=== PATIENT | male | born 1940 | race Caucasian/White ===

== ENCOUNTER 2016-08-15 10:50 | Inpatient (IN) | payer MEDICARE, OTHER ==
[2016-08-15] MEDS ORDERED: TYLENOL 325 MG PO PRN (11:14)
[2016-08-15] MEDS ORDERED: solu-MEDROL 125 MG IV ONE (11:30)
[2016-08-15] MEDS: PROVENTIL 2.5 MG/3 ML NEB IH SCH ×2 (11:39→14:36)
[2016-08-15] MEDS: Levofloxacin 500MG/100ML D5W 100 ML IV SCH (11:43)
[2016-08-15] MEDS: Dextrose 5% -0.45 NaCl 1000 ML 1,000 ML IV SCH (11:43)
[2016-08-15 11:45] LABS: BASOPHIL % 0.2 % (0.0-0.4); Eosinophil % 2.5 % (0.00-5.0); Granulocytes % 59.3 % (36.0-66.0); Lymphocytes % 27.7 % (24.0-44.0); Mean Cell Volume 88.6 fl (78-100); Mean Corpuscular Hemoglobin 28.3 pg (26-32); Mean Platelet Volume 10.5 fl (6-9.5); Monocytes % 10.3 % (0.0-12.0); Platelet Count 288 K/mm3 (150-450); Red Blood Count 4.92 M/mm3 (4.1-5.6); Red Cell Distribution Width 14.4 % (11.5-14.0); White Blood Count 8.1 K/mm3 (4.0-10.5)
[2016-08-15 12:12] LABS: ALBUMIN 2.9 g/dL (3.4-5.0); ALKALINE PHOSPHATASE 72 U/L (46-116); ANION GAP 13.9 MEQ/L (5-15); BILIRUBIN,TOTAL 0.3 mg/dL (0.2-1.0); BLOOD UREA NITROGEN 14 mg/dL (9-20); CHLORIDE 108 mEq/L (98-107); Carbon Dioxide 26.2 mEq/L (21-32); Glucose 105 MG/DL (70-110); SGOT/AST 18 U/L (15-37); SGPT/ALT 15 U/L (12-78); SODIUM 144 mEq/L (136-145); Total Protein 7.2 gm/dL (6.4-8.2)
--- NOTE | 2016-08-15 12:48 | XRAY ---
Indication: Pneumonia. Comparison: August 11, 2016 PA/lateral chest unchanged again hyperinflated with right lung infiltrates greatest in the right upper lobe with small effusion. No new cardiopulmonary abnormalities.
[2016-08-15] MEDS ORDERED: BENADRYL 25 MG CAPSULE PO PRN (13:58)
[2016-08-15] MEDS ORDERED: TYLENOL EXTRA STRENGTH 500 MG PO PRN (13:58)
[2016-08-15] MEDS: solu-MEDROL 125 MG IV SCH ×2 (17:06→23:10)
[2016-08-15] MEDS ORDERED: Xopenex 1.25 MG/0.5 ML UD NEBULE IH ONE (18:52)
[2016-08-15] MEDS ORDERED: Sodium Chloride 3 ML UD NEBULES IH ONE (18:52)
[2016-08-15] MEDS: Sodium Chloride 3 ML UD NEBULES IH SCH ×2 (18:58→23:04)
[2016-08-15] MEDS: Xopenex 1.25 MG/0.5 ML UD NEBULE IH SCH ×2 (18:58→23:04)
[2016-08-15] MEDS: PATIENT OWN MEDICATION IH SCH (18:58)
[2016-08-15] MEDS ORDERED: Cozaar 50 MG ONE (19:49)
[2016-08-15] MEDS ORDERED: NORVASC 5 MG ONE (19:52)
[2016-08-15] MEDS ORDERED: Lopressor 50 MG ONE (19:52)
[2016-08-15] MEDS ORDERED: Flomax 0.4 MG ONE (20:01)
[2016-08-15] MEDS: Lopressor 50 MG PO SCH (20:09)
[2016-08-15] MEDS: Flomax 0.4 MG PO SCH (20:09)
[2016-08-15] MEDS: Cozaar 50 MG PO SCH (20:09)
[2016-08-15] MEDS: NORVASC 5 MG PO SCH (20:09)
[2016-08-15] MEDS ORDERED: METOPROLOL TARTRATE 100 MG PO SCH (22:00)
[2016-08-15] MEDS ORDERED: DIPHENHYDRAMINE PO SCH (22:00)
[2016-08-15] MEDS ORDERED: NON-FORMULARY ITEM (Amlodipine Besylate 10 Mg [Norvasc 10 Mg] 10 MG) PO SCH (22:00)
[2016-08-15] MEDS ORDERED: ACETAMINOPHEN PO SCH (22:00)
[2016-08-15] MEDS ORDERED: [UNRECOGNIZED DRUG - OTHER] PO SCH (22:00)
[2016-08-15 23:30] LABS: A-aADO2 41; ARTERIAL BLOOD GAS BASE EXCESS -1.3 (-2.0-2.0); ARTERIAL BLOOD GAS FIO2 21 %; ARTERIAL BLOOD GAS PO2 65 mmHg (75-100); ARTERIAL BLOOD GAS pH 7.42 (7.35-7.45)
[2016-08-16] MEDS: Dextrose 5% -0.45 NaCl 1000 ML 1,000 ML IV SCH ×2 (01:03→14:29)
[2016-08-16] MEDS: Sodium Chloride 3 ML UD NEBULES IH SCH ×5 (03:07→22:45)
[2016-08-16] MEDS: Xopenex 1.25 MG/0.5 ML UD NEBULE IH SCH ×6 (03:08→22:45)
[2016-08-16] MEDS: solu-MEDROL 125 MG IV SCH ×4 (05:48→23:15)
[2016-08-16] MEDS ORDERED: BABY ASPIRIN 81 MG CHEW PO SCH (10:00)
[2016-08-16] MEDS ORDERED: METOPROLOL TARTRATE 50 MG PO SCH (10:00)
[2016-08-16] MEDS ORDERED: NON-FORMULARY ITEM (Omeprazole 20 Mg [Prilosec 20 Mg] 20 MG) PO SCH (10:00)
[2016-08-16] MEDS ORDERED: RED YEAST RICE 600 MG PO SCH (10:00)
[2016-08-16] MEDS ORDERED: NON-FORMULARY ITEM (Losartan Potassium [Losartan Potassium] 100 MG) PO SCH (10:00)
[2016-08-16] MEDS: Zetia 10 MG PO SCH (10:54)
[2016-08-16] MEDS: ECOTRIN 81 MG PO SCH (10:55)
[2016-08-16] MEDS: Protonix 40MG Tablet PO SCH (10:55)
[2016-08-16] MEDS: Vitamin C 500 MG PO SCH (10:56)
[2016-08-16] MEDS: Lopressor 50 MG PO SCH ×2 (10:56→21:09)
[2016-08-16] MEDS: Vitamin E 400 UNIT SOFTGEL PO SCH (10:57)
[2016-08-16] MEDS: MEDICATION INTERVENTION MC SCH (10:57)
[2016-08-16] MEDS: Levofloxacin 500MG/100ML D5W 100 ML IV SCH (10:59)
--- NOTE | 2016-08-16 12:49 | PCM.NOTE ---
Date and Time: 08/16/16 1244 Subjective Assessment: Pt is feeling better than at admission. His cough has increased. He is on O2 per [place] (does not wear O2 at home). He is concerned that he not miss his urology consult in [place] on Thursday afternoon. Objective Exam General Appearance: no apparent distress Neurologic Exam: alert, oriented x 3, cooperative Skin Exam: normal color, warm, dry Respiratory Exam: diminished breath sounds (in BEA), other (good air exchange), No crackles/rales, No rhonchi, No wheezing Cardiovascular Exam: regular rate/rhythm, normal heart sounds Gastrointestinal/Abdomen Exam: soft, No tenderness Extremity Exam: other (KAELYN hose in place), No pedal edema, No swelling OBJECTIVE DATA Vital Signs: Vital Signs - 24 hr Temp Pulse Resp BP Pulse Ox 08/16/16 11:54 98.4 F 88 18 148/76 95 08/16/16 11:44 18 95 08/16/16 08:00 18 91 L 08/16/16 07:36 83 18 96 08/16/16 07:23 98.7 F 88 19 124/58 91 L 08/16/16 04:00 98.1 F 88 20 161/76 94 L 08/16/16 03:07 88 20 94 L 08/16/16 00:00 98.7 F 95 H 19 160/76 88 L 08/15/16 23:04 95 H 19 88 L 08/15/16 20:00 98.5 F 88 17 169/78 92 L 08/15/16 18:58 105 H 20 92 L 08/15/16 16:00 98.6 F 79 18 141/66 92 L 08/15/16 14:38 72 18 93 L Oxygen-Last 24 hours O2 Percentage 2 Liters = 28% O2 Percentage 2 Liters = 28% O2 Percentage 2 Liters = 28% Pain Assessment - Last Documented Pain Scale Used 0-10 Pain Scale Intake and Output: Intake & Output 08/14/16 08/15/16 08/16/16 08/17/16 11:59 11:59 11:59 11:59 Intake Total 2185 Output Total 1325 Balance 860 Weight 86.636 kg Lab Results: Lab Results-Last 24 Hours 08/15/16 Range/Units 23:23 Puncture Site RIGHT BRACHIAL pCO2 35 (35-45) mmHg pO2 65 L (75-100) mmHg Base Excess -1.3 (-2.0-2.0) O2 Saturation 93.1 L (94-100) g/dF ABG pH 7.42 (7.35-7.45) ABG HCO3 22.7 (22-28) ABG O2 Sat (Measured) 96.0 (95-100) % Alex Test NOT APPLICABLE A-a Gradient 41 a/A Ratio 0.61 Hemoglobin 13.7 Carboxyhemoglobin 2.1 (0.0-6.9) % THgb Methemoglobin 0.9 L (1.4-1.5) % Potassium 4.0 (3.5-5.1) Temperature 37.0 C POC O2 Flow Rate 21 % Radiology Exams: Radiology Procedures Category Date Time Status CHEST 2 VIEWS (PA AND LAT) Routine Exams 08/15/16 12:00 Completed Assessment/Plan (1) Pneumonia Current Visit: Yes Status: Acute Qualifiers: Pneumonia type: due to unspecified organism Laterality: right Lung location: upper lobe of lung Qualified Code(s): J18.1 - Lobar pneumonia, unspecified organism Assessment & Plan: Pt is on levaquin, clinically improved. IV solumedrol. Nebs. Add mucinex. Code(s): J18.9 - PNEUMONIA, UNSPECIFIED ORGANISM (2) COPD (chronic obstructive pulmonary disease) Current Visit: Yes Status: Chronic (3) Bladder cancer Current Visit: Yes Status: Chronic Assessment & Plan: This is a new diagnosis and he is anxious to get to his appointment in [facility] on Thursday. I agree this is important; would hope he is improved enough to D/c on Thursday, but will be at the discretion of Dr. Gardner.
[2016-08-16] MEDS: Mucinex 600MG ER Tabs PO SCH ×2 (13:45→21:09)
[2016-08-16] MEDS: PATIENT OWN MEDICATION IH SCH (18:37)
[2016-08-16] MEDS: Flomax 0.4 MG PO SCH (21:09)
[2016-08-16] MEDS: Cozaar 50 MG PO SCH (21:09)
[2016-08-16] MEDS: NORVASC 5 MG PO SCH (21:09)
[2016-08-17] MEDS: Sodium Chloride 3 ML UD NEBULES IH SCH ×6 (02:43→22:38)
[2016-08-17] MEDS: Xopenex 1.25 MG/0.5 ML UD NEBULE IH SCH ×6 (02:43→22:38)
[2016-08-17] MEDS: Dextrose 5% -0.45 NaCl 1000 ML 1,000 ML IV SCH ×2 (03:07→17:49)
[2016-08-17] MEDS: solu-MEDROL 125 MG IV SCH ×4 (05:21→23:17)
[2016-08-17] MEDS: Zetia 10 MG PO SCH (09:06)
[2016-08-17] MEDS: ECOTRIN 81 MG PO SCH (09:06)
[2016-08-17] MEDS: Mucinex 600MG ER Tabs PO SCH ×2 (09:06→22:00)
[2016-08-17] MEDS: Protonix 40MG Tablet PO SCH (09:06)
[2016-08-17] MEDS: Levofloxacin 500MG/100ML D5W 100 ML IV SCH (09:07)
[2016-08-17] MEDS: Lopressor 50 MG PO SCH ×2 (09:07→22:00)
[2016-08-17] MEDS: MEDICATION INTERVENTION MC SCH (09:07)
[2016-08-17] MEDS: Vitamin C 500 MG PO SCH (09:08)
[2016-08-17] MEDS: Vitamin E 400 UNIT SOFTGEL PO SCH (09:08)
[2016-08-17] MEDS ORDERED: PREVNAR 13 SYRINGE IM ONE (15:00)
--- NOTE | 2016-08-17 15:30 | PCM.NOTE ---
Date and Time: 08/17/16 1525 Subjective Assessment: Pt is feeling much better. Still on O2 per [place]. - Review of Systems Constitutional: No Fever Respiratory: Cough Objective Exam General Appearance: no apparent distress Neurologic Exam: alert, oriented x 3, cooperative Skin Exam: normal color, warm, dry Respiratory Exam: diminished breath sounds, wheezing (light scattered) Cardiovascular Exam: regular rate/rhythm, normal heart sounds Extremity Exam: No pedal edema, No swelling OBJECTIVE DATA Vital Signs: Vital Signs - 24 hr Temp Pulse Resp BP Pulse Ox 08/17/16 14:35 78 18 93 L 08/17/16 12:00 18 92 L 08/17/16 11:44 98.4 F 69 18 133/65 90 L 08/17/16 11:10 92 L 08/17/16 10:29 72 18 94 L 08/17/16 08:00 19 95 08/17/16 07:32 98.0 F 74 19 160/74 95 08/17/16 07:05 77 18 93 L 08/17/16 04:00 97.8 F 84 20 133/61 93 L 08/17/16 02:43 84 20 93 L 08/17/16 00:00 98.4 F 82 21 136/61 92 L 08/16/16 22:45 82 21 92 L 08/16/16 20:00 98.2 F 87 2 L 134/77 91 L 08/16/16 18:34 83 21 92 L 08/16/16 16:00 98.9 F 85 19 136/66 92 L Oxygen-Last 24 hours O2 Percentage 1 Liter = 24% O2 Percentage 2 Liters = 28% O2 Percentage 2 Liters = 28% O2 Percentage 2 Liters = 28% O2 Percentage 2 Liters = 28% O2 Percentage 2 Liters = 28% Pain Assessment - Last Documented Pain Scale Used 0-10 Pain Scale Intake and Output: Intake & Output 08/15/16 08/16/16 08/17/16 08/18/16 11:59 11:59 11:59 11:59 Intake Total 2185 2665 Output Total 1325 Balance 860 2665 Weight 86.636 kg Assessment/Plan (1) Pneumonia Current Visit: Yes Status: Acute Qualifiers: Pneumonia type: due to unspecified organism Laterality: right Lung location: upper lobe of lung Qualified Code(s): J18.1 - Lobar pneumonia, unspecified organism Assessment & Plan: He has definitely made improvements with the levaquin. Ideally, he would be free to stay in the hospital for another day or two, but I understand the importance of his appointment in [place] tomorrow and agree that he should go to that. To this end, we will arrange for home O2 today and schedule his a.m. levaquin for 0700. I explained the Dr. Gardner will re-assess him in the morning. Code(s): J18.9 - PNEUMONIA, UNSPECIFIED ORGANISM (2) COPD (chronic obstructive pulmonary disease) Current Visit: Yes Status: Chronic (3) Bladder cancer Current Visit: Yes Status: Chronic Assessment & Plan: Following up with urology outpatient. I explained to the patient that the urologist will likely wait to proceed with surgery until his lung infection is cleared.
[2016-08-17] MEDS: PATIENT OWN MEDICATION IH SCH (19:00)
[2016-08-17] MEDS ORDERED: Pepcid 20 MG PO PRN (20:20)
[2016-08-17] MEDS: Cozaar 50 MG PO SCH (21:59)
[2016-08-17] MEDS: Flomax 0.4 MG PO SCH (21:59)
[2016-08-17] MEDS: NORVASC 5 MG PO SCH (22:00)
[2016-08-18] MEDS: Sodium Chloride 3 ML UD NEBULES IH SCH ×2 (02:37→06:42)
[2016-08-18] MEDS: Xopenex 1.25 MG/0.5 ML UD NEBULE IH SCH ×2 (02:37→06:42)
[2016-08-18] MEDS: solu-MEDROL 125 MG IV SCH (06:10)
[2016-08-18] MEDS ORDERED: Pepcid 20 MG PO PRN (06:37)
[2016-08-18] MEDS ORDERED: Levofloxacin 500MG/100ML D5W 100 ML IV SCH (07:00)
[2016-08-18 07:24] VITALS: BP 125/60; PULSE 73; O2SAT 91
--- NOTE | 2016-08-18 08:35 | PCM.DCORD ---
- Discharge Discharge Date: 08/18/16 Disposition: Home, Self-Care Condition: Fair Prescriptions: New Prednisone 20 mg [Deltasone 20 mg] 20 mg PO UD #10 tablet Guaifenesin [Guaifenesin ER] 600 mg PO BID PRN #20 tab.er.12h PRN Reason: Cough Levofloxacin 500 mg PO DAILY #3 tablet Continue Ezetimibe 10 mg [Zetia 10 MG] 10 mg PO DAILY Red Yeast Rice 600 mg PO DAILY Acetaminophen 500 mg [Tylenol Extra Strength 500 mg] 500 mg PO Q4- 6HPRN PRN PRN Reason: arthritis Amlodipine Besylate 10 mg [Norvasc 10 MG] 10 mg PO HS Tamsulosin HCl 0.4 mg [Flomax 0.4 MG] 0.4 mg PO QHS #7 cap Vitamin E 400 Units [Vitamin E 400 UNIT SOFTGEL] 400 unit PO DAILY Aspirin 81 gm Chew [Baby Aspirin 81 mg Chew] 81 mg PO DAILY Ascorbic Acid 500 mg [Vitamin C 500 MG] 500 mg PO DAILY Metoprolol Tartrate [Lopressor] 100 mg PO HS Losartan Potassium 100 mg PO DAILY Metoprolol Tartrate 50 mg PO DAILY Omeprazole 20 MG [Prilosec 20 mg] 20 mg PO DAILY Umeclidinium [place] [Incruse Ellipta] 1 puff IH DAILY Acetaminophen/Diphenhydramine [Tylenol Pm Ex-Strength Caplet] 1 each PO HS Additional Instructions: Oxygen by nasal cannula 2 L at all times. [facility] supply this. Follow up with: LAMIN SMITH [Primary Care Provider] - 1 Week Forms: Patient Portal Information
[2016-08-18] MEDS: ECOTRIN 81 MG PO SCH (08:47)
[2016-08-18] MEDS: Protonix 40MG Tablet PO SCH (08:47)
[2016-08-18] MEDS: Mucinex 600MG ER Tabs PO SCH (08:47)
[2016-08-18] MEDS: Zetia 10 MG PO SCH (08:47)
[2016-08-18] MEDS: Lopressor 50 MG PO SCH (08:47)
[2016-08-18] MEDS: MEDICATION INTERVENTION MC SCH (08:47)
[2016-08-18] MEDS: Vitamin E 400 UNIT SOFTGEL PO SCH (08:48)
[2016-08-18] MEDS: Vitamin C 500 MG PO SCH (08:48)
--- NOTE | 2016-08-18 10:28 | DS ---
DISCHARGE DIAGNOSIS: 1. RIGHT UPPER LOBE PNEUMONIA. 2. CHRONIC OBSTRUCTIVE PULMONARY DISEASE WITH HYPOXIA. 3. HISTORY OF BLADDER CANCER. DISCHARGE PHYSICAL EXAM: VITALS: Temperature current 98.5, temperature maximum 98.5, heart rate 69-73, respiratory rate 18-20, O2 saturation 91-94% on 2 liters nasal cannula, BP 123-155/60-76, weight 86.6 Kg. GENERAL: The patient is a pleasant, talkative man sitting up in bed in no acute distress. CVS: He has a regular rate and rhythm. No murmurs, gallops, or rubs are appreciated. CHEST: He has a few scattered wheezes. Equal breath sounds. No crackles are appreciated. ABDOMEN: Soft, nontender, nondistended with normal bowel sounds. EXTREMITIES: No clubbing, cyanosis, or edema. SKIN: Warm, dry, and intact. HOSPITAL COURSE: 1. Right upper lobe pneumonia. He had been treated with azithromycin as an outpatient without resolution of his symptoms of cough and dyspnea. He reports his cough is much better. He was qualified for home O2 at 2 liters continuously within 24 hours of his discharge. He was started on levofloxacin when he came in and this was continued during his hospital stay. He received 4 doses of this and will continue with levofloxacin 500 mg PO daily for 3 more days starting 08/19/16 and will have him follow-up with me closely in the clinic. 2. Chronic obstructive pulmonary disease. Has a long history of smoking and chronic obstructive pulmonary disease. He was continued on his home breathing treatments and started on the O2 as above and qualified for home O2. He was started on Solu-Medrol 80 mg IV q [address] Clayton saw him during his hospital stay. It does not look like his steroids were weaned at all, so I am going to discharge him on prednisone 40 mg PO daily for 3 days, then 20 mg PO daily for 4 days. Will also give him guaifenesin 600 mg PO bid PRN cough. 3. Bladder cancer. He has an appointment in [place] to discuss future surgery for this today and he would like very much to go to this appointment. Feel that he is clinically stable with the O2 and antibiotics to be discharged as he has made some improvement. DISCHARGE MEDICATIONS: He is to resume all his home medications as well as the levofloxacin and prednisone as discussed above as well as the guaifenesin as discussed above. DISPOSITION: The patient was discharged to home in fair condition. FOLLOW-UP: He can follow-up with me in the clinic within 1 week.
== END 2016-08-18 09:40 | disposition home or self-care (01) | DRG 194 ==
LOC: MED SURG 10:56
PROVIDERS: ADMIT Internal Medicine; ATTEND Internal Medicine
DX: J18.9 Pneumonia, unspecified organism (principal); J44.1 Chronic obstructive pulmonary disease with (acute) exacerbation; R09.02 Hypoxemia; C67.9 Malignant neoplasm of bladder, unspecified; Z85.51 Personal history of malignant neoplasm of bladder; E05.90 Thyrotoxicosis, unspecified without thyrotoxic crisis or storm; E78.5 Hyperlipidemia, unspecified; I10 Essential (primary) hypertension
CPT/HCPCS: 36415; 36600; 71020; 80053; 82375; 82803; 85025; 87040; 87070; 89220; 90670; 94640; 94760; G0009; J1956; J2930

== ENCOUNTER 2016-11-07 11:46 | Emergency (ER) | payer MEDICARE, OTHER ==
--- NOTE | 2016-11-07 12:28 | ERPHSYRPT ---
- History of Present Illness Time Seen by Provider: 11/07/16 12:27 Source: patient Exam Limitations: no limitations Patient Subjective Stated Complaint: PT STATES HE HAS BEEN CONSTIPATED FOR THE PAST 4-5 DAYS. PT STATES HE IS TAKING IV CHEMO. PT C/O PAIN IN RECTUM. Triage Nursing Assessment: PT PINK WARM, DRY, ABDOMEN DISTENDED. BOWEL SOUNDS PRESENT IN ALL 4 QUADS. Physician History: The patient is a 75-year-old male complaining of constipation for 3-4 days. This morning he tried to have a bowel movement but only was able to have 2 small "pellets". He was straining and noticed some blood. He denies being lightheaded. He is currently on the first round of chemotherapy for bladder cancer that has apparently metastasized to the bone, kidney, and lymph nodes. His past medical history is significant for bladder cancer, hypertension, and BPH. Timing/Duration: day(s) (3) Severity: moderate Modifying Factors: Improves With: nothing Associated Symptoms: No nausea, No vomiting, No abdominal pain Allergies/Adverse Reactions: amoxicillin Allergy (Intermediate, Verified 11/07/16 11:54) passed out/light headed Penicillins Allergy (Intermediate, Verified 11/07/16 11:54) Lightheadedness syncope raspberry Allergy (Verified 11/07/16 11:54) strawberry Allergy (Verified 11/07/16 11:54) Home Medications: Acetaminophen 500 mg [Tylenol Extra Strength 500 mg] 500 mg PO Q4-6HPRN PRN 09/27/12 [History] Amlodipine Besylate 10 mg [Norvasc 10 MG] 10 mg PO HS 09/27/12 [History] Ezetimibe 10 mg [Zetia 10 MG] 10 mg PO DAILY 09/27/12 [History] Aspirin 81 gm Chew [Baby Aspirin 81 mg Chew] 81 mg PO DAILY 01/15/15 [ History] Losartan Potassium 100 mg PO DAILY 01/15/15 [History] Metoprolol Tartrate [Lopressor] 100 mg PO HS 01/15/15 [History] Acetaminophen/Diphenhydramine [Tylenol Pm Ex-Strength Caplet] 1 each PO HS 08/15 [History] Metoprolol Tartrate 50 mg PO DAILY 08/15/16 [History] Ondansetron [Zofran Odt] 4 mg PO BID 11/07/16 [History] Prochlorperazine Maleate 10 mg [Compazine 10 mg] 10 mg PO BID 11/07/16 [History] Tamsulosin HCl 0.4 mg [Flomax 0.4 MG] 0.4 mg PO HS 11/07/16 [History] Hx Tetanus, Diphtheria Vaccination/Date Given: Yes (UP TO DATE) Hx Influenza Vaccination/Date Given: Yes Hx Pneumococcal Vaccination/Date Given: Yes Immunizations Up to Date: Yes - Review of Systems Constitutional: No Fever, No Chills Eyes: No Symptoms Ears, Nose, & Throat: No Symptoms Respiratory: No Cough, No Dyspnea Cardiac: No Symptoms Abdominal/Gastrointestinal: Constipation Genitourinary Symptoms: No Symptoms Musculoskeletal: No Back Pain, No Neck Pain Skin: No Rash Neurological: No Dizziness, No Focal Weakness, No Sensory Changes Psychological: No Symptoms Endocrine: No Symptoms Hematologic/Lymphatic: No Symptoms Immunological/Allergic: No Symptoms All Other Systems: Reviewed and Negative - Past Medical History Pertinent Past Medical History: Yes Neurological History: No Pertinent History ENT History: No Pertinent History Cardiac History: High Cholesterol, Hypertension Respiratory History: COPD Endocrine Medical History: No Pertinent History Musculoskeletal History: Arthritis GI Medical History: GERD History: Bladder Cancer, Other Psycho-Social History: No Pertinent History Male Reproductive Disorders: No Pertinent History Other Medical History: hx kidney stones. CANCER IN BLADDER. 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 PORT PLACEMENT - Social History Smoking Status: Former smoker How long have you smoked: 60 years Exposure to second hand smoke: No Drug Use: none Patient Lives Alone: No - Nursing Vital Signs Nursing Vital Signs: Initial Vital Signs Temperature 97.8 F Temperature Source Oral Pulse Rate 78 Respiratory Rate 18 Blood Pressure [] 148/72 Pain Intensity 6 - Physical Exam General Appearance: no apparent distress, alert Eye Exam: PERRL/EOMI, eyes nml inspection Ears, Nose, Throat Exam: normal ENT inspection, TMs normal, pharynx normal, moist mucous membranes Neck Exam: normal inspection, non-tender, supple, full range of motion Respiratory Exam: normal breath sounds, lungs clear, No respiratory distress Cardiovascular Exam: regular rate/rhythm, normal heart sounds, normal peripheral pulses Gastrointestinal/Abdomen Exam: soft, normal bowel sounds, No tenderness, No mass Back Exam: normal inspection, normal range of motion, No CVA tenderness, No vertebral tenderness Extremity Exam: normal inspection, normal range of motion, pelvis stable Neurologic Exam: alert, oriented x 3, cooperative, normal mood/affect, nml cerebellar function, nml station & gait, sensation nml, No motor deficits Skin Exam: normal color, warm, dry, No rash Lymphatic Exam: No adenopathy SpO2 Interpretation: normal Oxygen Delivery: Room Air - Radiology Exams Abdomen X-ray Interpretation: Teleradiologist Report (mild fecal stasis per Dr Conti.) Ordered Tests: Active Orders 24 hr Category Date Time Status Enema STAT Care 11/07/16 13:44 Active KUB Stat Exams 11/07/16 12:28 Completed - Progress Progress: improved Progress Note: 11/07/16 14:32 Before the enema could be started, the patient had a large bowel movement. He now feels better. Counseled pt/family regarding: diagnosis, rad results - Departure Time of Disposition: 14:33 Departure Disposition: Home Clinical Impression: Constipation Condition: Stable Critical Care Time: No Additional Instructions: You had an acute bout of constipation. Continue with the Colace as directed and as needed. Stay well hydrated. Follow-up with your primary medical doctor or with the oncologist as needed.
--- NOTE | 2016-11-07 13:03 | XRAY ---
Indication: Constipation. Comparison: April 29, 2016. KUB now demonstrates mild diffuse scattered colonic fecal debris without focal bowel dilatation or obstruction. Stable left renal micro-calculi and a few calcified splenic granulomas. Remaining solid organs unremarkable. Osseous structures intact again with mild scoliosis and multilevel spinal degenerative changes. Impression: Mild fecal stasis without obstruction. Stable left renal micro-calculi.
[2016-11-07 13:41] VITALS: PULSE 78
[2016-11-07 14:53] VITALS: BP 134/70; O2SAT 100
== END 2016-11-07 14:53 | disposition home or self-care (01) ==
LOC: ED 11:46
DX: K59.00 Constipation, unspecified (principal)
CPT/HCPCS: 74000; 99283; 99284

== ENCOUNTER 2016-11-14 07:03 | Observation (INO) | payer MEDICARE, OTHER ==
[2016-11-14] MEDS ORDERED: Sodium Chloride 0.9% 1000 ML 1,000 ML IV STA (07:29)
[2016-11-14] MEDS ORDERED: Zofran 4 MG/2 ML VIAL IV ONE (07:29)
[2016-11-14] MEDS ORDERED: Sodium Chloride 0.9% 1000 ML 1,000 ML ONE (07:34)
[2016-11-14] MEDS ORDERED: Zofran 4 MG/2 ML VIAL ONE (07:34)
--- NOTE | 2016-11-14 07:36 | ERPHSYRPT ---
- History of Present Illness Time Seen by Provider: 11/14/16 07:22 Historian: patient Exam Limitations: no limitations Patient Subjective Stated Complaint: STATES HAS BEEN VOMITING SINCE YESTERDAY. UNABLE TO KEEP ANYTHING DOWN. HX BLADDER CANCER AND RECEIVED CHEMO WED. THINKS HE MAY BE GETTING DEHYDRATED. Triage Nursing Assessment: AMBULATED TO ROOM WITHOUT DIFFICULTY. SKIN W/D, COLOR NORMAL, RESP NONLABOERED. ABD SOFT, NON TENDER. 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 Patient has not taken his temperature at home feels like he might have had some chills he really does not have any specific complaints of abdominal pain. Patient was seen here a week ago for . constipation Past medical history includes hyperlipidemia, COPD, arthritis, GERD, bladder cancer, kidney stones, metastases to bone kidney and lymph nodes, high blood pressure, benign prostatic hypertrophy Past surgical history includes kidney stones 2, colonoscopy, lesions removed from his back (nonmalignant), port placement Timing/Duration: yesterday Activities at Onset: none Quality: other (no pain) Abdominal Pain Onset Location: other (No pain) Pain Radiation: other (No pain) Severity of Pain-Max: none Severity of Pain-Current: none Modifying Factors: Worsens With: analgesics, antacids, breathing, coughing, defecating, eating, exercise, lying down, movement, palpation, rest, urinating, position, walking Associated Symptoms: nausea, vomiting, No back, No chest pain, No diaphoresis, No diarrhea, No fever/chills, No fatigue, No headache, No heartburn, No loss of appetite, No neck pain, No rash, No shortness of breath, No syncope, No weakness Previous symptoms: no prior history Allergies/Adverse Reactions: amoxicillin Allergy (Intermediate, Verified 11/14/16 07:16) passed out/light headed Penicillins Allergy (Intermediate, Verified 11/14/16 07:16) Lightheadedness syncope raspberry Allergy (Verified 11/14/16 07:16) strawberry Allergy (Verified 11/14/16 07:16) Home Medications: Acetaminophen 500 mg [Tylenol Extra Strength 500 mg] 500 mg PO Q4-6HPRN PRN 09/27/12 [History] Amlodipine Besylate 10 mg [Norvasc 10 MG] 10 mg PO DAILY 09/27/12 [History] Ezetimibe 10 mg [Zetia 10 MG] 10 mg PO DAILY 09/27/12 [History] Losartan Potassium 100 mg PO DAILY 01/15/15 [History] Acetaminophen/Diphenhydramine [Tylenol Pm Ex-Strength Caplet] 1 each PO HS 08/15 [History] Ondansetron [Zofran Odt] 4 mg PO BIDPRN PRN 11/07/16 [History] Prochlorperazine Maleate 10 mg [Compazine 10 mg] 10 mg PO BIDPRN PRN 11/07/16 [ History] Tamsulosin HCl 0.4 mg [Flomax 0.4 MG] 0.4 mg PO HS 11/07/16 [History] Metoprolol Succinate 100 mg [Toprol Xl 100 MG] 100 mg PO DAILY 11/14/16 [ History] Metoprolol Succinate 50 mg [Toprol Xl 50 MG] 50 mg PO HS 11/14/16 [History ] Hx Tetanus, Diphtheria Vaccination/Date Given: No Hx Influenza Vaccination/Date Given: Yes Hx Pneumococcal Vaccination/Date Given: Yes - Review of Systems Constitutional: Chills, No Fever, No Fatigue, No Lethargy, No Malaise, No Night Sweats, No Weakness, No Weight Loss Eyes: No Symptoms, No Eye Pain, No Eye Redness, No Itchy, No Photophobia, No Tearing, No Vision Changes, No Double Vision, No Foreign Body Sensation Ears, Nose, & Throat: No Symptoms, Other (recently placed on nystatin for thrush ), No Ear Pain, No Ear Discharge, No Hearing Changes, No Tinnitus, No Nose Pain , No Nose Congestion, No Nose Discharge, No Sinus Drainage, No Epistaxis, No Mouth Pain, No Mouth Swelling, No Loose Teeth, No Throat Swelling, No Hoarse, No Painful Swallowing, No Snoring Respiratory: No Cough, No Dyspnea Cardiac: No Chest Pain, No Edema, No Syncope Abdominal/Gastrointestinal: Nausea, Vomiting, No Abdominal Pain, No Diarrhea, No Constipation, No Hematemesis, No Hematochezia, No Melena, No Dysphagia, No Appetite Changes Genitourinary Symptoms: No Symptoms, No Dysuria, No Frequency, No Hematuria, No Hesitancy, No Incontinence, No Urgency, No Urinary Retention, No Flank Pain, No Testicle Pain, No Penile Discharge Musculoskeletal: No Back Pain, No Neck Pain Skin: No Rash Neurological: No Dizziness, No Focal Weakness, No Sensory Changes Psychological: No Symptoms Endocrine: No Symptoms All Other Systems: Reviewed and Negative - Past Medical History Pertinent Past Medical History: Yes Neurological History: No Pertinent History ENT History: No Pertinent History Cardiac History: High Cholesterol, Hypertension Respiratory History: COPD Endocrine Medical History: No Pertinent History Musculoskeletal History: Arthritis GI Medical History: GERD History: Bladder Cancer, Other Psycho-Social History: No Pertinent History Male Reproductive Disorders: No Pertinent History Other Medical History: hx kidney stones. CANCER IN BLADDER. 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 PORT PLACEMENT - Social History Smoking Status: Former smoker How long have you smoked: 60 years Exposure to second hand smoke: No Drug Use: none Patient Lives Alone: No - Nursing Vital Signs Nursing Vital Signs: Initial Vital Signs Temperature 97.9 F Temperature Source Oral Pulse Rate 88 Respiratory Rate 18 Blood Pressure [] 129/80 Pain Intensity 0 - Physical Exam General Appearance: no apparent distress, alert Eye Exam: PERRL/EOMI, eyes nml inspection Ears, Nose, Throat Exam: normal ENT inspection, pharynx normal, moist mucous membranes Neck Exam: normal inspection, non-tender, supple, full range of motion Respiratory Exam: normal breath sounds, lungs clear, No respiratory distress Cardiovascular Exam: regular rate/rhythm, normal heart sounds Gastrointestinal/Abdomen Exam: soft, normal bowel sounds, tenderness (slight diffuse tenderness), No distention, No mass, No guarding, No ecchymosis, No pulsatile mass, No rebound, No hernia, No hepatomegaly, No organomegaly, No splenomegaly Back Exam: normal inspection, normal range of motion, No CVA tenderness, No vertebral tenderness Extremity Exam: normal inspection, normal range of motion, pelvis stable Neurologic Exam: alert, oriented x 3, cooperative, normal mood/affect, nml cerebellar function, sensation nml, No motor deficits Skin Exam: normal color, warm, dry SpO2 Interpretation: normal (92%) SpO2: 92 Oxygen Delivery: Room Air - Course Nursing assessment & vital signs reviewed: Yes - Radiology Exams Abdomen X-ray Interpretation: Discussed w/ radiologist (acute abdominal series 3 view: Impression: 1. Nonacute nonobstructed abdomen with stable left renal micro- calculi 2. Minimally improved right upper l right costophrenic angle. No new cardiopulmonary abnormalities.) - CT Exams Abdomen/Pelvis CT Interpretation: Discussed w/radiologist (CT abdomen and pelvis: Impression: 1. New diffuse liver metastasis. Also new spinal sclerotic lesions probably metastatic. 2. Worsening right lung base effusion/atelectasis. 3. Stable hiatal hernia, enlarrged prostate gland, chronic pancreatitis calcifications, nonobstructing bilateral renal micro calculi, bilateral renal cysts, stranding, scarring, colonic diverticulosis, and fatty bilateral inguinal hernias. 4. Indeterminateprominent right inguinal node) Ordered Tests: Active Orders 24 hr Category Date Time Status Cadd Technician STAT Care 11/14/16 07:43 Active IV Insertion STAT Care 11/14/16 07:29 Active Oxygen-ED Only NASAL CANNULA 2 lpm Care 11/14/16 07:43 Active ABDOMEN AND PELVIS W/0 CONTRAS [CT] Stat Exams 11/14/16 10:00 Completed OBSTR/ACUTE ABDOMEN SERIES Stat Exams 11/14/16 07:29 Completed AMYLASE Stat Lab 11/14/16 07:45 Completed BLOOD CULTURE Stat Lab 11/14/16 08:00 Received CBC W DIFF Stat Lab 11/14/16 07:45 Completed CMP Stat Lab 11/14/16 07:45 Completed CULTURE,URINE Stat Lab 11/14/16 08:20 Ordered LIPASE Stat Lab 11/14/16 07:45 Completed UA W/ MICROSCOPIC Stat Lab 11/14/16 08:00 Completed Transfer Order Routine Transfer 11/14/16 12:12 Ordered Medication Summary Discontinued Medications Generic Name Dose Route Start Last Admin Trade Name Freq PRN Reason Stop Dose Admin Sodium Chloride 1,000 mls @ 999 mls/hr 11/14/16 07:29 11/14/16 07:36 Sodium Chloride 0.9% 1000 Ml IV 11/14/16 08:29 999 mls/hr .Q1H1M STA Administration Sodium Chloride Confirm 11/14/16 07:34 Sodium Chloride 0.9% 1000 Ml Administered 11/14/16 07:35 Dose 1,000 mls @ ud .ROUTE .STK-MED ONE Levofloxacin 500 mg 11/14/16 12:10 11/14/16 12:17 Levofloxacin 500 Mg Tablet PO 11/14/16 12:11 500 mg STAT ONE Administration Levofloxacin Confirm 11/14/16 12:16 Levofloxacin 500 Mg Tablet Administered 11/14/16 12:17 Dose 500 mg .ROUTE .STK-MED ONE Ondansetron HCl 4 mg 11/14/16 07:29 11/14/16 07:36 Zofran 4 Mg/2 Ml Vial IV 11/14/16 07:30 4 mg STAT ONE Administration Ondansetron HCl Confirm 11/14/16 07:34 Zofran 4 Mg/2 Ml Vial Administered 11/14/16 07:35 Dose 4 mg .ROUTE .STK-MED ONE Lab/Rad Data: Laboratory Result Diagrams 11/14/16 07:45 11/14/16 07:45 Laboratory Results 11/14/16 11/14/16 11/14/16 Range/Units 08:00 08:00 07:45 WBC (4.0-10.5) K/mm3 RBC (4.1-5.6) M/mm3 Hgb (12.5-18.0) gm/dl Hct (42-50) % MCV (78-100) fl MCH (26-32) pg MCHC (32-36) g/dl RDW (11.5-14.0) % Plt Count (150-450) K/mm3 MPV (6-9.5) fl Gran % (36.0-66.0) % Lymphocytes % (24.0-44.0) % Monocytes % (0.0-12.0) % Eosinophils % (0.00-5.0) % Basophils % (0.0-0.4) % Basophils # (0-0.4) Sodium 144 (136-145) mEq/L Potassium 4.2 (3.5-5.1) mEq/L Chloride 106 (98-107) mEq/L Carbon Dioxide 23.1 (21-32) mEq/L Anion Gap 19.1 H (5-15) MEQ/L BUN 18 (9-20) mg/dL Creatinine 1.22 (0.55-1.30) mg/dl Estimated GFR > 60 ML/MIN Glucose 119 H (70-110) MG/DL Calcium 8.4 L (8.5-10.1) mg/dL Total Bilirubin 1.4 H (0.2-1.0) mg/dL AST 197 H (15-37) U/L ALT 172 H (12-78) U/L Alkaline Phosphatase 306 H (46-116) U/L Serum Total Protein 7.1 (6.4-8.2) gm/dL Albumin 2.6 L (3.4-5.0) g/dL Amylase 49 (25-115) U/L Lipase 76 (73-393) U/L Ur Collection Type VOID Urine Color YELLOW (YELLOW) Urine Appearance CLEAR (CLEAR) Urine pH 5.5 (5-6) Ur Specific [place] 1.020 (1.005-1.025) Urine Protein 30 (Negative) Urine Glucose (UA) NEGATIVE (NEGATIVE) mg/dL Urine Ketones TRACE (NEGATIVE) Urine Nitrite NEGATIVE (NEGATIVE) Urine Bilirubin NEGATIVE (NEGATIVE) Urine Urobilinogen 1 (0-1) mg/dL Urine WBC (Auto) NEGATIVE (NEGATIVE) Urine RBC (Auto) NEGATIVE (0-5) Mushtaq/ul Urine Microscopic RBC 0-2 (0-2) /HPF Urine Microscopic WBC 0-2 (0-5) /HPF Urine Bacteria MODERATE (NEGATIVE) /HPF Urine Mucus SLIGHT (NEGATIVE) /HPF Influenza Type A Ag NEGATIVE (NEGATIVE) Influenza Type B Ag NEGATIVE (NEGATIVE) RSV (PCR) NEGATIVE (Negative) Specimen Received 11/14/16 0813 11/14/16 Range/Units 07:45 WBC 4.9 (4.0-10.5) K/mm3 RBC 3.79 L (4.1-5.6) M/mm3 Hgb 10.9 L (12.5-18.0) gm/dl Hct 34.0 L (42-50) % MCV 89.7 (78-100) fl MCH 28.7 (26-32) pg MCHC 32.1 (32-36) g/dl RDW 15.9 H (11.5-14.0) % Plt Count 138 L (150-450) K/mm3 MPV 11.1 H (6-9.5) fl Gran % 70.0 H (36.0-66.0) % Lymphocytes % 26.1 (24.0-44.0) % Monocytes % 2.9 (0.0-12.0) % Eosinophils % 0.8 (0.00-5.0) % Basophils % 0.2 (0.0-0.4) % Basophils # 0.01 (0-0.4) Sodium (136-145) mEq/L Potassium (3.5-5.1) mEq/L Chloride (98-107) mEq/L Carbon Dioxide (21-32) mEq/L Anion Gap (5-15) MEQ/L BUN (9-20) mg/dL Creatinine (0.55-1.30) mg/dl Estimated GFR ML/MIN Glucose (70-110) MG/DL Calcium (8.5-10.1) mg/dL Total Bilirubin (0.2-1.0) mg/dL AST (15-37) U/L ALT (12-78) U/L Alkaline Phosphatase (46-116) U/L Serum Total Protein (6.4-8.2) gm/dL Albumin (3.4-5.0) g/dL Amylase (25-115) U/L Lipase (73-393) U/L Ur Collection Type Urine Color (YELLOW) Urine Appearance (CLEAR) Urine pH (5-6) Ur Specific [place] (1.005-1.025) Urine Protein (Negative) Urine Glucose (UA) (NEGATIVE) mg/dL Urine Ketones (NEGATIVE) Urine Nitrite (NEGATIVE) Urine Bilirubin (NEGATIVE) Urine Urobilinogen (0-1) mg/dL Urine WBC (Auto) (NEGATIVE) Urine RBC (Auto) (0-5) Mushtaq/ul Urine Microscopic RBC (0-2) /HPF Urine Microscopic WBC (0-5) /HPF Urine Bacteria (NEGATIVE) /HPF Urine Mucus (NEGATIVE) /HPF Influenza Type A Ag (NEGATIVE) Influenza Type B Ag (NEGATIVE) RSV (PCR) (Negative) Specimen Received - Progress Progress: improved Progress Note: 11/14/16 10:02 75-year-old white male with history of bladder cancer with metastases, who is on chemotherapy, arrives with complaint of vomiting since yesterday, Patient with a mild elevation in liver enzymes states he is not feeling well after receiving IV fluids and Zofran, I've discussed case with Dr. Clayton who is division merchandise manager for Dr. Smith, She is requesting CT of the abdomen and pelvis, Unfortunately patient is allergic to strawberries Will obtain CT without contrast and contact Dr. smith after results are available, 11/14/16 12:05 Patient with liver metastases on patient's CT of the abdomen also new spinal sclerotic lesions, worsening of the right lung base effusion/atelectasis, patient was stable hiatal hernia, enlarged prostate gland, chronic pancreatitis , nonobstructing bilateral renal micro-calculi, bilateral renal cysts/stranding/ scarring, colonic diverticulosis, and fatty bilateral inguinal hernia as well as an indeterminate prominent right inguinal node. Case is discussed initially with Dr. Clayton she requested that we talk with Dr. Sanderson , he recommended Levaquin 500 mg orally every day for 7 days. He also stated that we could place the patient in this facility for hydration if this is warranted. I've discussed the case with Dr. smith who has come by patient was seen by Dr. Smith as well. Will place patient on observation for IV fluids and Zofran. - Departure Time of Disposition: 12:08 Departure Disposition: Observation Clinical Impression: bladder cancer with metastase, Elevated liver enzymes Vomiting Qualifiers: Vomiting type: unspecified Vomiting Intractability: non-intractable Nausea presence: with nausea Qualified Code(s): R11.2 - Nausea with vomiting, unspecified Condition: Fair Critical Care Time: No Referrals: LAMIN SMITH [Primary Care Provider] -
[2016-11-14 07:56] LABS: BASOPHIL % 0.2 % (0.0-0.4); Eosinophil % 0.8 % (0.00-5.0); Lymphocytes % 26.1 % (24.0-44.0); Mean Cell Volume 89.7 fl (78-100); Mean Platelet Volume 11.1 fl (6-9.5); Monocytes % 2.9 % (0.0-12.0); Platelet Count 138 K/mm3 (150-450); Red Blood Count 3.79 M/mm3 (4.1-5.6); Red Cell Distribution Width 15.9 % (11.5-14.0); White Blood Count 4.9 K/mm3 (4.0-10.5)
[2016-11-14 08:00] LABS: Mean Corpuscular Hemoglobin 28.7 pg (26-32)
[2016-11-14 08:12] LABS: Collection Type VOID
[2016-11-14 08:13] LABS: COMPLETE URINE MICROSCOPIC? YES; Ph 5.5 (5-6)
[2016-11-14 08:14] LABS: ALBUMIN 2.6 g/dL (3.4-5.0); ALKALINE PHOSPHATASE 306 U/L (46-116); ANION GAP 19.1 MEQ/L (5-15); BILIRUBIN,TOTAL 1.4 mg/dL (0.2-1.0); BLOOD UREA NITROGEN 18 mg/dL (9-20); CHLORIDE 106 mEq/L (98-107); Carbon Dioxide 23.1 mEq/L (21-32); Glucose 119 MG/DL (70-110); LIPASE 76 U/L (73-393); Potassium 4.2 mEq/L (3.5-5.1); SGOT/AST 197 U/L (15-37); SGPT/ALT 172 U/L (12-78); SODIUM 144 mEq/L (136-145); Total Protein 7.1 gm/dL (6.4-8.2)
[2016-11-14 08:15] LABS: Bacteria MODERATE /HPF (NEGATIVE); Mucus SLIGHT /HPF (NEGATIVE); WBC 0-2 /HPF (0-5)
--- NOTE | 2016-11-14 09:14 | XRAY ---
Indication: Vomiting. Comparison: KUB November 07, 2016 and chest August 25, 2016. 2 views of the abdomen again nonacute and nonobstructed. Stable left renal micro-calculi. Solid organs unremarkable. Osseous structures intact again with multilevel degenerative spondylosis and scoliosis. Single PA chest again hyperinflated with new left-sided Port-A-Cath. Previous right upper lobe infiltrate/atelectasis minimally improved. Stable right costophrenic angle blunting. Left lung clear. Heart is not enlarged. Bony thorax intact again with minimal degenerative changes. Impression: 1. Again nonacute nonobstructed abdomen with stable left renal micro-calculi. 2. Minimally improved right upper lobe infiltrate/atelectasis with stable blunted right costophrenic angle. No new cardiopulmonary abnormalities.
--- NOTE | 2016-11-14 10:56 | XRAY ---
Indication: Vomiting. Patient states history of bladder, bone, kidney, and neck cancer. Multiple contiguous axial images obtained through the abdomen and pelvis without contrast as ordered. Comparison: June 11, 2016. Lung bases demonstrates moderate right base effusion with adjacent atelectasis much more than before. Stable left base atelectasis/scarring. Heart is not enlarged. There is again small hiatal hernia. Liver now demonstrates too numerous to count hypodense lesions favoring metastasis. Stable demonstrating bilateral renal micro-calculi, bilateral renal cysts, and bilateral perinephric stranding. Previous posterior bladder wall mass not readily visible on this noncontrast exam. No free fluid/air or pathologic retroperitoneal lymphadenopathy. Noncontrasted stomach and bowel loops appear nonobstructed. Stable descending colonic diverticulosis without diverticulitis. Again appendicolith without appendicitis. Again a few pancreas calcifications from chronic pancreatitis, hepatic/splenic calcified granulomas, and enlarged prostate gland. Remaining gallbladder, pancreas, adrenal glands, and ureters appear unremarkable for noncontrast exam. There remains moderate aortoiliac calcifications without AAA. Stable small fatty bilateral inguinal hernias. 1.4 x 2.0 cm right inguinal node. Osseous structures again demonstrates moderate multilevel degenerative spondylosis. There are now subtle patchy sclerotic lesions throughout the thoracolumbar spine worrisome for metastasis. Impression: 1. New diffuse liver metastasis. Also new spinal sclerotic lesions probably metastatic. 2. Worsening right lung base effusion/atelectasis. 3. Stable hiatal hernia, enlarged prostate gland, chronic pancreatitis calcifications, nonobstructing bilateral renal micro-calculi, bilateral renal cysts/stranding/scarring, colonic diverticulosis, and fatty bilateral inguinal hernias. 4. Indeterminate prominent right inguinal node. CT DI 18.86
[2016-11-14] MEDS ORDERED: Levofloxacin 500 MG Tablet PO ONE (12:10)
[2016-11-14] MEDS ORDERED: Levofloxacin 500 MG Tablet ONE (12:16)
[2016-11-14] MEDS ORDERED: DUONEB 0.5-3 MG/3 ml Neb IH PRN (12:48)
[2016-11-14] MEDS ORDERED: Sodium Chloride 0.9% 1000 ML 1,000 ML IV SCH (12:48)
[2016-11-14] MEDS ORDERED: Zofran 4 MG/2 ML VIAL IV PRN (13:01)
[2016-11-14] MEDS ORDERED: TYLENOL 325 MG PO PRN (13:01)
[2016-11-14] MEDS ORDERED: Phenergan 25 MG INJ IV PRN (13:04)
--- NOTE | 2016-11-14 13:29 | HP ---
HISTORY OF PRESENT ILLNESS: Eber Gtz is a 75 year-old man with a history of metastatic bladder cancer and was being treated by Dr. Irene. He presented to the emergency department with vomiting since approximately 1400 hours yesterday. He states it started out with vomiting food that he tried to eat. He said he had biscuits and gravy in the morning and then tried to eat chicken wings in the afternoon. He also tried taking Nystatin which he had been prescribed by a nurse practitioner at Dr. Irene's office for thrush and then he was not able to hold anything down. He states that even when he drank small sips of fluid he vomited. He reports vomiting one to two times a day for the past two weeks. He has been on chemotherapy for approximately eight weeks but he states the vomiting was worse last night. He denies any diarrhea. He felt hot and cold yesterday. He has urinated here in the emergency room. REVIEW OF SYSTEMS: He reports he had some dyspnea but that has been going on for quite a while. He has oxygen that he is supposed to wear all the time but states he does not take it with him as he finds the portable tank hinder some. He denies any chest pain. He reports some pressure in the stomach for the past month. Otherwise the review of systems is as noted in the history of present illness. PAST MEDICAL HISTORY: Chronic obstructive pulmonary disease, hypoxia, bladder cancer. His urologist is Dr. Paz. He was diagnosed in July 2016 and he had a biopsy done at that time. Hypertension, hyperthyroidism, kidney stones which he has seen urologist for since 2013. Hyperglycemia, benign prostatic hypertrophy, history of marcial on his right arm and chest. 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 According to his last hematology note from September 2016, they are using systemic palliative chemotherapy with carboplatin and Gemzar. They are also giving him Xgeva monthly for bone metastasis. PAST SURGICAL HISTORY: Growth removed from his shoulder. Vasectomy. Colonoscopy 2006 that was normal. MEDICATIONS: Please see the medication reconciliation list. ALLERGIES: AMOXICILLIN, PENICILLIN, RASPBERRY, STRAWBERRY. SOCIAL HISTORY: He quit smoking but was a heavy smoker in the past, 50 tobacco years of use. He quit in July 2016. He is and lives with his . FAMILY HISTORY: His mother had breast cancer. His father had skin cancer. PHYSICAL EXAMINATION: VITAL SIGNS: Temperature current 97.9F, heart rate 85 to 116 and currently 88, respiratory rate 18 to 20, blood pressure 129 to 159 over 73 to 82, weight 83.1 kg. Oxygen saturation 92 to 98% on 2 liters nasal cannula. GENERAL: The patient is a pleasant man lying in bed in no acute distress. His is at the bedside. CVS: He has a regular rate and rhythm. No murmurs, gallops or rubs are appreciated. CHEST: Clear to auscultation bilaterally. No crackles or wheezes. ABDOMEN: Normal bowel sounds. No guarding. No rigidity. I appreciate hepatomegaly with approximately 3 cm below the ribs. EXTREMITIES: No clubbing, cyanosis or edema. SKIN: Warm, dry and intact. HEENT: Mouth - He has a few white plaques on the inside of his mouth. Face- His left eyelid appears to droop a little bit more. His right eyelid appears to droop a little bit more than the left. LABORATORY DATA AND TESTS: His AST 197 with a baseline of 18 in August 2016. ALT 172 with a baseline of 38 in 2017. Alkaline phosphatase 306 with a baseline of 84 in August 2016. Albumin 2.6. UA moderate bacteria but 0-2 white blood cells. Influenza A/B and respiratory syncytial virus were all negative. Hemoglobin 10.9, PLT count 138,000. He had an acute abdominal series that was read as nonobstructive with stable left renal microcalculi. Please see the radiologist dictation for the full report. He also had a CT scan that revealed new diffuse liver metastases and new spinal sclerotic lesion as well as worsening right lung base effusion/atelectasis. Please see the radiologist dictation for the full report. ASSESSMENT AND PLAN: 1) VOMITING: We will try to advance the patient's diet as tolerated and continue with IV fluids. 2) METASTATIC BLADDER CANCER: Will continue treatment per his oncologist, Dr. Irene, who was called by the emergency room doctor and does know about his admission. 3) CHRONIC OBSTRUCTIVE PULMONARY DISEASE AND HISTORY OF HYPOXIA: Will continue with oxygen 2 liters nasal cannula as he is on this at baseline at home. PROGNOSIS: Overall guarded due to the metastatic cancer but the patient appears fairly stable at this time.
[2016-11-14] MEDS: Dextrose 5% -0.45 NaCl 1000 ML 1,000 ML IV SCH (13:38)
[2016-11-14] MEDS: DUONEB 0.5-3 MG/3 ml Neb IH SCH ×2 (14:30→21:11)
[2016-11-14] MEDS ORDERED: NORCO 5/325 MG PO PRN (15:24)
[2016-11-14] MEDS ORDERED: Colace 100 MG PO PRN (15:24)
[2016-11-14] MEDS ORDERED: NON-FORMULARY ITEM (Prochlorperazine Maleate 10 Mg [Compazine 10 Mg] 10 MG) PO PRN (15:24)
[2016-11-14] MEDS ORDERED: Compazine 5 MG PO PRN (15:32)
[2016-11-14] MEDS: Vitamin C 500 MG PO SCH (16:19)
[2016-11-14] MEDS: Protonix 40MG Tablet PO SCH (16:19)
[2016-11-14] MEDS: Toprol Xl 100 MG PO SCH (16:19)
[2016-11-14] MEDS: Nystatin SUSPENSION 60 ML PO SCH ×3 (16:20→23:07)
[2016-11-14] MEDS ORDERED: NYSTATIN PO SCH (17:00)
[2016-11-14] MEDS: Spiriva 18 Mcg/Cap Inhaler IH SCH (21:13)
[2016-11-14] MEDS ORDERED: NON-FORMULARY ITEM (Losartan Potassium [Losartan Potassium] 100 MG) PO SCH (22:00)
[2016-11-14] MEDS ORDERED: NON-FORMULARY ITEM (Amlodipine Besylate 10 Mg [Norvasc 10 Mg] 10 MG) PO SCH (22:00)
[2016-11-14] MEDS: Flomax 0.4 MG PO SCH (23:02)
[2016-11-14] MEDS: NORVASC 5 MG PO SCH (23:02)
[2016-11-14] MEDS: Cozaar 50 MG PO SCH (23:02)
[2016-11-14] MEDS: Toprol Xl 50 MG PO SCH (23:03)
[2016-11-14] MEDS: Zetia 10 MG PO SCH (23:03)
[2016-11-15] MEDS: Dextrose 5% -0.45 NaCl 1000 ML 1,000 ML IV SCH ×2 (01:57→14:17)
[2016-11-15 05:32] LABS: White Blood Count 3.8 K/mm3 (4.0-10.5)
[2016-11-15 05:33] LABS: BASOPHIL % 0.3 % (0.0-0.4); Eosinophil % 0.8 % (0.00-5.0); Granulocytes % 75.2 % (36.0-66.0); Lymphocytes % 22.4 % (24.0-44.0); Mean Cell Volume 90.3 fl (78-100); Mean Platelet Volume 11.2 fl (6-9.5); Monocytes % 1.3 % (0.0-12.0); Platelet Count 112 K/mm3 (150-450); Red Blood Count 3.08 M/mm3 (4.1-5.6); Red Cell Distribution Width 15.5 % (11.5-14.0)
[2016-11-15 05:48] LABS: Mean Corpuscular Hemoglobin 28.8 pg (26-32)
[2016-11-15 05:52] LABS: ALBUMIN 2.3 g/dL (3.4-5.0); ALKALINE PHOSPHATASE 251 U/L (46-116); ANION GAP 14.1 MEQ/L (5-15); BILIRUBIN,TOTAL 1.3 mg/dL (0.2-1.0); BLOOD UREA NITROGEN 13 mg/dL (9-20); CHLORIDE 104 mEq/L (98-107); Carbon Dioxide 26.2 mEq/L (21-32); Glucose 124 MG/DL (70-110); Potassium 4.4 mEq/L (3.5-5.1); SGOT/AST 159 U/L (15-37); SGPT/ALT 137 U/L (12-78); SODIUM 140 mEq/L (136-145); Total Protein 6.1 gm/dL (6.4-8.2)
[2016-11-15] MEDS: DUONEB 0.5-3 MG/3 ml Neb IH SCH ×4 (07:14→19:02)
[2016-11-15] MEDS ORDERED: Zofran 4 MG/2 ML VIAL IV PRN (08:37)
[2016-11-15] MEDS ORDERED: NON-FORMULARY ITEM (Omeprazole [Omeprazole] 20 MG) PO SCH (10:00)
[2016-11-15] MEDS ORDERED: Levofloxacin 500 MG Tablet PO SCH (10:00)
[2016-11-15] MEDS ORDERED: NON-FORMULARY ITEM (Ascorbate Calcium [Vitamin C] 500 MG) PO SCH (10:00)
[2016-11-15] MEDS: Nystatin SUSPENSION 60 ML PO SCH ×4 (10:14→23:08)
[2016-11-15] MEDS: Toprol Xl 100 MG PO SCH (10:15)
[2016-11-15] MEDS: ENOXAPARIN SODIUM SQ SCH (10:15)
[2016-11-15] MEDS: Protonix 40MG Tablet PO SCH (10:15)
[2016-11-15] MEDS: Vitamin C 500 MG PO SCH (10:15)
[2016-11-15] MEDS: Levofloxacin 500 MG Tablet PO SCH (10:16)
[2016-11-15] MEDS: Spiriva 18 Mcg/Cap Inhaler IH SCH (19:05)
[2016-11-15] MEDS ORDERED: BENADRYL 25 MG CAPSULE PO PRN (21:46)
[2016-11-15] MEDS: Cozaar 50 MG PO SCH (23:06)
[2016-11-15] MEDS: Flomax 0.4 MG PO SCH (23:06)
[2016-11-15] MEDS: Toprol Xl 50 MG PO SCH (23:06)
[2016-11-15] MEDS: NORVASC 5 MG PO SCH (23:06)
[2016-11-15] MEDS: Zetia 10 MG PO SCH (23:06)
[2016-11-16] MEDS: Dextrose 5% -0.45 NaCl 1000 ML 1,000 ML IV SCH (02:37)
[2016-11-16 05:52] LABS: Eosinophil % 0.8 % (0.00-5.0); Granulocytes % 68.2 % (36.0-66.0); Lymphocytes % 29.9 % (24.0-44.0); Mean Cell Volume 90.1 fl (78-100); Mean Corpuscular Hemoglobin 28.5 pg (26-32); Mean Platelet Volume 10.6 fl (6-9.5); Monocytes % 1.1 % (0.0-12.0); Platelet Count 109 K/mm3 (150-450); Red Blood Count 3.33 M/mm3 (4.1-5.6); Red Cell Distribution Width 15.8 % (11.5-14.0); White Blood Count 3.7 K/mm3 (4.0-10.5)
[2016-11-16] MEDS: DUONEB 0.5-3 MG/3 ml Neb IH SCH ×2 (07:31→10:30)
[2016-11-16 07:38] LABS: ALBUMIN 2.4 g/dL (3.4-5.0); BILIRUBIN,TOTAL 1.1 mg/dL (0.2-1.0); BLOOD UREA NITROGEN 9 mg/dL (9-20); CHLORIDE 105 mEq/L (98-107); Carbon Dioxide 24.5 mEq/L (21-32); Glucose 101 MG/DL (70-110); Potassium 4.5 mEq/L (3.5-5.1); SGOT/AST 125 U/L (15-37); SODIUM 139 mEq/L (136-145); Total Protein 6.4 gm/dL (6.4-8.2)
[2016-11-16 07:39] LABS: ALKALINE PHOSPHATASE 240 U/L (46-116); ANION GAP 14.3 MEQ/L (5-15); SGPT/ALT 142 U/L (12-78)
[2016-11-16] MEDS: Vitamin C 500 MG PO SCH (09:02)
[2016-11-16] MEDS: ENOXAPARIN SODIUM SQ SCH (09:02)
[2016-11-16] MEDS: Toprol Xl 100 MG PO SCH (09:02)
[2016-11-16] MEDS: Levofloxacin 500 MG Tablet PO SCH (09:02)
[2016-11-16] MEDS: Protonix 40MG Tablet PO SCH (09:02)
[2016-11-16] MEDS: Nystatin SUSPENSION 60 ML PO SCH ×2 (09:03→13:05)
[2016-11-16 10:59] VITALS: PULSE 86
[2016-11-16 12:20] VITALS: BP 126/60; O2SAT 96
== END 2016-11-16 13:50 | disposition home or self-care (01) ==
LOC: ED 07:03 → MED SURG 12:40
PROVIDERS: ADMIT Internal Medicine; ATTEND Internal Medicine
DX: C67.9 Malignant neoplasm of bladder, unspecified (principal); C77.9 Secondary and unspecified malignant neoplasm of lymph node, unspecified; C79.51 Secondary malignant neoplasm of bone; C79.00 Secondary malignant neoplasm of unspecified kidney and renal pelvis; C78.7 Secondary malignant neoplasm of liver and intrahepatic bile duct; C78.00 Secondary malignant neoplasm of unspecified lung; Z79.899 Other long term (current) drug therapy; J44.9 Chronic obstructive pulmonary disease, unspecified; I10 Essential (primary) hypertension; E05.90 Thyrotoxicosis, unspecified without thyrotoxic crisis or storm; Z87.442 Personal history of urinary calculi; Z87.891 Personal history of nicotine dependence; Z80.3 Family history of malignant neoplasm of breast; Z80.8 Family history of malignant neoplasm of other organs or systems; E78.5 Hyperlipidemia, unspecified
CPT/HCPCS: 36000; 36415; 74022; 74176; 80053; 81000; 82150; 83690; 85025; 87040; 87086; 87631; 93041; 93268; 94640; 94760; 96360; 96374; 99285; G0378; J1650; J2405; A9270-GY